=== PATIENT | female | born 1980 | race Caucasian/White ===

== ENCOUNTER 2024-06-12 01:36 | Emergency (ER) | payer SELFPAY ==
[~2024-06-12] VITALS: Ht 170.2 cm; Wt 94.8 kg
[2024-06-12] MEDS ORDERED: Ondansetron HCl 2 MG / ML 2ML Vial IV ONE (01:55)
[2024-06-12 02:02] LABS: BASOPHILS ABSOLUTE AUTO 0.04 K/mm3 (0.00-0.23); BASOPHILS PERCENT AUTO 1 % (0-2); EOSINOPHILS ABSOLUTE AUTO 0.26 K/mm3 (0.00-0.68); EOSINOPHILS PERCENT AUTO 3 % (0-6); Hematocrit 41.1 % (33.0-51.0); IMMATURE GRAN ABSOLUTE AUTO 0.01 K/mm3 (0.00-0.10); IMMATURE GRAN PERCENT AUTO 0 % (0-1); LYMPHOCYTES ABSOLUTE AUTO 2.73 K/mm3 (0.84-5.20); LYMPHOCYTES PERCENT AUTO 33 % (21-46); MONOCYTES ABSOLUTE AUTO 0.82 K/mm3 (0.16-1.47); MONOCYTES PERCENT AUTO 10 % (4-13); Mean Corpuscular HGB 30.8 pg (26.0-34.0); Mean Corpuscular HGB Conc 34.1 g/dL (31.5-36.5); Mean Corpuscular Volume 91 fL (80-100); NEUTROPHILS ABSOLUTE AUTO 4.33 K/mm3 (1.96-9.15); NEUTROPHILS PERCENT AUTO 53 % (41-73); Platelet Count 382 K/mm3 (150-400); RDW Coefficient Variation 14.2 % (11.7-14.2); RDW Standard Deviation 47.4 fL (35.1-46.3); Red Blood Cell Count 4.54 M/mm3 (3.80-5.20); White Blood Cell Count 8.19 K/mm3 (4.00-11.30)
[2024-06-12 02:19] LABS: Albumin, Blood 3.5 g/dL (3.4-5.0); Bilirubin, Total 0.3 mg/dL (0.1-1.0); Bun/Creatinine Ratio 16.9 (12.0-20.0); Calcium, Blood 8.7 mg/dL (8.5-10.1); Creatinine, Blood 0.59 mg/dL (0.40-1.00); Globulin, Blood 3.4 g/dL (2.2-4.0); Potassium, Blood 4.1 mmol/L (3.5-5.5); Total Protein, Blood 6.9 g/dL (6.4-8.2)
[2024-06-12] MEDS ORDERED: RX Prepack 2 Tabs Ondansetron ODT 4MG UD ONE (03:25)
[2024-06-12] MEDS ORDERED: Ketorolac Tromethamine 30mg Vial IV ONE (03:30)
== END 2024-06-12 03:35 | disposition home or self-care (01) ==
LOC: ER 01:36
PROVIDERS: Emergency Medicine
DX: K92.0 Hematemesis (principal); Z88.1 Allergy status to other antibiotic agents
CPT/HCPCS: 80053; 85025; 96374; 96375; 99284-25; A9270; J1885; J2405

== ENCOUNTER 2024-10-17 13:53 | Emergency (ER) | payer SELFPAY ==
[~2024-10-17] VITALS: Ht 170.2 cm; Wt 97.5 kg
[2024-10-17] MEDS ORDERED: ACET500 PO (14:33)
[2024-10-17] MEDS ORDERED: IBUP600 PO (14:33)
[2024-10-17] MEDS ORDERED: Ketorolac Tromethamine 15mg Vial IM ONE (14:35)
[2024-10-17] MEDS ORDERED: Gabapentin 300 MG Cap PO ONE (14:35)
[2024-10-17] MEDS ORDERED: Acetaminophen 500 MG Tab PO ONE (14:35)
== END 2024-10-17 14:51 | disposition home or self-care (01) ==
LOC: ER 13:53
DX: M54.12 Radiculopathy, cervical region (principal); Z88.0 Allergy status to penicillin; Z88.1 Allergy status to other antibiotic agents
CPT/HCPCS: 96372; 99282-25; A9270; J1885